=== PATIENT | male | born 1960 | race Caucasian/White ===

== ENCOUNTER → 2016-09-02 | Outpatient (CLI) | payer OTHER ==
[~2016-09-02] MED LIST: AMLO5TAB2 PO; ATEN100T PO; ATOR1TAB21 PO; PRAD150C PO
[2016-09-02 09:26] LABS: ANION GAP 6 MEQ/L (8-16); BLOOD UREA NITROGEN 19 MG/DL (7-18); CALCIUM LEVEL 9.1 MG/DL (8.5-10.1); CARBON DIOXIDE LEVEL 31 MEQ/L (21-32); CHLORIDE LEVEL 107 MEQ/L (98-107); CREATININE FOR GFR 0.92 MG/DL (0.70-1.30); GLOMERULAR FILTRATION RATE > 60.0 (>56); GLUCOSE, FASTING 98 MG/DL (70-105); SODIUM LEVEL 144 MEQ/L (136-145)
[2016-09-02 09:29] LABS: POTASSIUM SERUM 5.4 MEQ/L (3.5-5.1)
== END ==
LOC: M LAB 07:56
PROVIDERS: ATTEND Ophthalmology
DX: Z01.818 Encounter for other preprocedural examination (principal); H25.11 Age-related nuclear cataract, right eye

== ENCOUNTER → 2016-09-12 | Day surgery (SDC) | payer OTHER ==
[~2016-09-12] VITALS: Ht 177.8 cm; Wt 81.6 kg
[~2016-09-12] MED LIST changes: +ACETYLCHOLINE OPHTH SOLN 1% 2ML As Ordered ONE; +ACETYLCHOLINE OPHTH SOLN 1% 2ML XX ONE; +BALANCED SALT IRRIGATION SOLUTION 500ML BAG (FOR OR EYE MACHINE) As Ordered ONE; +BALANCED SALT IRRIGATION SOLUTION 500ML BAG (FOR OR EYE MACHINE) IR ONE; +CEFUROXIME 1MG/0.1ML INTRACAMERAL INJ As Ordered ONE; +CEFUROXIME 1MG/0.1ML INTRACAMERAL INJ ICAM ONE; +D5W/0.2% SODIUM CHLORIDE 1,000 ML IV SCH; +D5W/0.2% SODIUM CHLORIDE 250 ML IV SCH; +HEALON DUET (HEALON 10MG/ML 0.55ML & HEALON ENDOCOAT 30MG/ML 0.85ML) As Ordered ONE; +HEALON DUET (HEALON 10MG/ML 0.55ML & HEALON ENDOCOAT 30MG/ML 0.85ML) IO ONE; +LIDOCAINE 0.75%/EPINEPHRINE 0.025% IN BSS 1ML SYR INTRACAMERAL (OR ONLY) As Ordered ONE; +LIDOCAINE 0.75%/EPINEPHRINE 0.025% IN BSS 1ML SYR INTRACAMERAL (OR ONLY) ICAM ONE; +LIDOCAINE 4% TOPICAL SOLN 50 ML BTL TOP ONE; +MIDAZOLAM INJ 2 MG/2 ML VIAL (J2250) As Ordered ONE; +OFLOXACIN 0.3 % (OCUFLOX) OPTH SOL 5ML OD ONE; +ONDANSETRON 4MG/2ML VIAL (J2405) IV PRN; +PHENYLEPHRINE 2.5% OPHTH SOL 2ML OD ONE; +POVIDONE-IODINE 5% OPHTH PREP SOL 30ML As Ordered ONE; +PROPARACAINE 0.5% OPHTH SOL 15ML OD ONE; +TOBRADEX OPHTH OINT 3.5 GM As Ordered ONE; +TOBRADEX OPHTH OINT 3.5 GM XX ONE; +TROPICAMIDE 1% OPHTH SOLN 2 ML OD ONE; +fentaNYL 100 MCG/2 ML INJECTION (J3010) As Ordered ONE
[2016-09-12 11:35] VITALS: BP 131/89
--- NOTE | 2016-09-13 09:17 | RO ---
DATE OF PROCEDURE: 09/12/2016 PREOPERATIVE DIAGNOSIS: Visually significant nuclear sclerotic cataract right eye. POSTOPERATIVE DIAGNOSIS: Visually significant nuclear sclerotic cataract right eye. PROCEDURE: Extracapsular cataract removal with insertion of Toric implant, ZIS176, 19.0 diopter at 170 degrees, right eye. SURGEON: Emil Tilley DO [employer]: ANESTHESIA: Local with monitored anesthesia care (MAC). COMPLICATIONS: None. POSTOPERATIVE CONDITION: Stable. INDICATION FOR SURGERY: Blurred vision right eye affecting patient's activities of daily living. DESCRIPTION OF PROCEDURE: The patient was seen in the preoperative area and properly identified. The correct operative eye was identified and marked. A Toric reference marker was inked and then placed on the eye marking 0, 90, 180 degree markers. . The patient received topical antibiotics in the preoperative area. The patient then received topical dilating drops consisting of tropicamide and phenylephrine. The patient was then transferred to the operating room. The correct side was reidentified. The patient received topical anesthetics and antibiotics on the surface of the eye. The eye was prepped and draped in a sterile fashion. The upper and lower eyelids were isolated with Tegaderm tape, and the lids were held open with an adjustable speculum. Prior to the paracentesis incision, the Toric reference dong was again inspected and a Toric marker was placed at the 170 degree exit and then marked with ink with a marking pen. Using a sideport blade, a paracentesis incision was made. Intraocular preservative-free lidocaine was then injected into the anterior chamber. Viscoelastic was then injected into the anterior chamber through the paracentesis. Using a 2.65 mm sharp-tipped keratome, the anterior chamber was entered via a temporal clear corneal incision. A continuous curvilinear capsulorrhexis was created with the aid of a 26-gauge cystotome and Utrata forceps. Hydrodissection was performed with balanced salt solution (BSS) on a blunt cannula until the nucleus was freely mobile. The crystalline lens was phacoemulsified and aspirated. Additional cohesive viscoelastic was placed into the capsular bag to deepen it. A ZCT 150, 19.0 diopter lens was placed into the capsular bag and confirmed by visualizing the continuous curvilinear capsulorrhexis, the toric dots were aligned with the 170 degree axis dong. Additional irrigation and aspiration was used to remove cortical material and remaining viscoelastic. The clear corneal incision was hydrated with BSS on a blunt cannula. The lens was well positioned. The incisions were then tested for leaks and found to be negative. The eye was then palpated for appropriate pressure and adjusted accordingly with BSS. ReSure sealant was placed on the incision, and found to be watertight. The eyelid speculum was then carefully removed. Tobradex ointment was placed in the eye. An eye patch and shield were then secured over the eye. The patient tolerated the procedure well and was discharged to the recovery unit in a stable condition. ARTUR
== END | disposition home or self-care (01) ==
LOC: M SDC 08:08
PROVIDERS: ATTEND Ophthalmology
DX: H25.11 Age-related nuclear cataract, right eye (principal); I48.91 Unspecified atrial fibrillation; I10 Essential (primary) hypertension; E78.5 Hyperlipidemia, unspecified; Z79.82 Long term (current) use of aspirin; Z79.899 Other long term (current) drug therapy; Z79.02 Long term (current) use of antithrombotics/antiplatelets
CPT/HCPCS: 66984; J2250; J3010

== ENCOUNTER → 2017-05-01 | Outpatient (CLI) | payer OTHER ==
[~2017-05-01] MED LIST changes: -ACETYLCHOLINE OPHTH SOLN 1% 2ML As Ordered ONE; -ACETYLCHOLINE OPHTH SOLN 1% 2ML XX ONE; -BALANCED SALT IRRIGATION SOLUTION 500ML BAG (FOR OR EYE MACHINE) As Ordered ONE; -BALANCED SALT IRRIGATION SOLUTION 500ML BAG (FOR OR EYE MACHINE) IR ONE; -CEFUROXIME 1MG/0.1ML INTRACAMERAL INJ As Ordered ONE; -CEFUROXIME 1MG/0.1ML INTRACAMERAL INJ ICAM ONE; -D5W/0.2% SODIUM CHLORIDE 1,000 ML IV SCH; -D5W/0.2% SODIUM CHLORIDE 250 ML IV SCH; -HEALON DUET (HEALON 10MG/ML 0.55ML & HEALON ENDOCOAT 30MG/ML 0.85ML) As Ordered ONE; -HEALON DUET (HEALON 10MG/ML 0.55ML & HEALON ENDOCOAT 30MG/ML 0.85ML) IO ONE; -LIDOCAINE 0.75%/EPINEPHRINE 0.025% IN BSS 1ML SYR INTRACAMERAL (OR ONLY) As Ordered ONE; -LIDOCAINE 0.75%/EPINEPHRINE 0.025% IN BSS 1ML SYR INTRACAMERAL (OR ONLY) ICAM ONE; -LIDOCAINE 4% TOPICAL SOLN 50 ML BTL TOP ONE; -MIDAZOLAM INJ 2 MG/2 ML VIAL (J2250) As Ordered ONE; -OFLOXACIN 0.3 % (OCUFLOX) OPTH SOL 5ML OD ONE; -ONDANSETRON 4MG/2ML VIAL (J2405) IV PRN; -PHENYLEPHRINE 2.5% OPHTH SOL 2ML OD ONE; -POVIDONE-IODINE 5% OPHTH PREP SOL 30ML As Ordered ONE; -PROPARACAINE 0.5% OPHTH SOL 15ML OD ONE; -TOBRADEX OPHTH OINT 3.5 GM As Ordered ONE; -TOBRADEX OPHTH OINT 3.5 GM XX ONE; -TROPICAMIDE 1% OPHTH SOLN 2 ML OD ONE; -fentaNYL 100 MCG/2 ML INJECTION (J3010) As Ordered ONE
--- NOTE | 2017-05-02 03:03 | REP ---
Clinical: Sprain. Technique: AP, lateral, bilateral oblique views of the right ankle. Findings: Lateral soft tissue swelling noted. No acute fracture or dislocation. Joint spaces and ankle mortise are intact. Impression: Swelling. No acute fracture or dislocation. Signed by Jean-Claude Orellana MD 05/02/2017 02:54 A
== END ==
LOC: M ADAMS 09:20
PROVIDERS: ATTEND Physician Assistant
DX: S93.401A Sprain of unspecified ligament of right ankle, initial encounter (principal); W18.30XA Fall on same level, unspecified, initial encounter; Y92.009 Unspecified place in unspecified non-institutional (private) residence as the place of occurrence of the external cause

== ENCOUNTER → 2021-05-02 | Outpatient (CLI) | payer OTHER ==
[~2021-05-02] MED LIST changes: +AMLO1TAB24 PO; -AMLO5TAB2 PO; -PRAD150C PO; +PRAD150C6 PO; +XARE20TA PO
== END ==
LOC: M LABSMTC 10:08
PROVIDERS: ATTEND Anesthesiology
DX: Z01.818 Encounter for other preprocedural examination (principal)

== ENCOUNTER 2021-05-07 11:28 | Day surgery (SDC) | payer OTHER ==
[~2021-05-07] VITALS: Ht 177.8 cm; Wt 84.3 kg
[~2021-05-07 11:28] MED LIST changes: +NS 1,000 ML IV ONE
[2021-05-07] MEDS ORDERED: LIDOCAINE 2% 100MG/5ML SDV (FOR ANES.) As Ordered ONE (11:47)
[2021-05-07] MEDS ORDERED: propofoL 200 MG/20 ML VIAL As Ordered ONE (11:47)
--- NOTE | 2021-05-07 12:48 | ROOR ---
Patient Name: Ricardo Fowler Procedure Date: 05/07/2021 12:16 PM Date of : 1960 Age: 60 Room: [facility] Gender: Male Note Status: Finalized Procedure: Total Colonoscopy to Cecum + Biopsy Polypectomy Indications: Colon cancer screening in patient at increased risk: Colorectal cancer in brother, High risk colon cancer surveillance: Personal history of colonic polyps Providers: Long Tilley MD Referring MD: VENKATESH PEREZ Requesting Provider: Medicines: Monitored Anesthesia Care Complications: No immediate complications. Procedure: Pre-Anesthesia Assessment: - The heart rate, respiratory rate, oxygen saturations, blood pressure, adequacy of pulmonary ventilation, and response to care were monitored throughout the procedure. The Colonoscope was introduced through the anus and advanced to the cecum, identified by appendiceal orifice and ileocecal valve. The colonoscopy was performed without difficulty. The patient tolerated the procedure well. The quality of the bowel preparation was good. Findings: The perianal and digital rectal examinations were normal. Non-bleeding internal hemorrhoids were found during retroflexion. The hemorrhoids were small and Grade I (internal hemorrhoids that do not prolapse). Multiple sessile polyps were found at 40 cm proximal to the anus. The polyps were small in size. These polyps were removed with a jumbo cold forceps. Resection and retrieval were complete. A small polyp was found in the hepatic flexure. The polyp was sessile. The polyp was removed with a jumbo cold forceps. Resection and retrieval were complete. Scattered small-mouthed diverticula were found in the recto-sigmoid colon, sigmoid colon and descending colon. The exam was otherwise without abnormality on direct and retroflexion views. Impression: - Non-bleeding internal hemorrhoids. - Multiple small polyps at 40 cm proximal to the anus, removed with a jumbo cold forceps. Resected and retrieved. - One small polyp at the hepatic flexure, removed with a jumbo cold forceps. Resected and retrieved. - Diverticulosis in the recto-sigmoid colon, in the sigmoid colon and in the descending colon. - The examination was otherwise normal on direct and retroflexion views. - The exam was otherwise normal to the cecum. Recommendation: - Patient has a contact number available for emergencies. The signs and symptoms of potential delayed complications were discussed with the patient. Return to normal activities tomorrow. Written discharge instructions were provided to the patient. - High fiber diet. - Discharge patient to home. - Continue present medications. - Await pathology results. - Telephone GI clinic for pathology results in 1 week. - Repeat colonoscopy in 5 years for surveillance based on pathology results. - Return to referring physician. - The findings and recommendations were discussed with the patient. Procedure Code(s): --- Professional --- 01854, Colonoscopy, flexible; with biopsy, single or multiple Diagnosis Code(s): --- Professional --- K63.5, Polyp of colon Z80.0, Family history of malignant neoplasm of digestive organs Z86.010, Personal history of colonic polyps K64.0, First degree hemorrhoids K57.30, Diverticulosis of large intestine without perforation or abscess without bleeding CPT copyright 2019 [employer]. All rights reserved. The codes documented in this report are preliminary and upon note taker review may be revised to meet current compliance requirements. Long Tilley MD Long Tilley MD 05/07/2021 12:47:58 PM Electronically signed by Long Tilley MD Number of Addenda: 0 Note Initiated On: 05/07/2021 12:16 PM Estimated Blood Loss: Estimated blood loss: none.
[2021-05-07 13:08] VITALS: BP 119/73
== END 2021-05-07 13:10 | disposition home or self-care (01) ==
LOC: M OPP 11:28
PROVIDERS: ATTEND Internal Medicine Gastroenterology
DX: Z12.11 Encounter for screening for malignant neoplasm of colon (principal); Z86.010 Personal history of colon polyps; Z80.0 Family history of malignant neoplasm of digestive organs; Z83.71 Family history of colonic polyps; K63.5 Polyp of colon; K64.0 First degree hemorrhoids; K57.30 Diverticulosis of large intestine without perforation or abscess without bleeding; Z79.899 Other long term (current) drug therapy; Z85.46 Personal history of malignant neoplasm of prostate

== ENCOUNTER → 2021-07-12 | Outpatient (CLI) | payer OTHER ==
[~2021-07-12] MED LIST changes: -NS 1,000 ML IV ONE
--- NOTE | 2021-07-12 11:49 | REP ---
INDICATION: PAIN. COMPARISON: None. TECHNIQUE: Four views FINDINGS: The joint spaces are symmetric and relatively well maintained. There is mild D IP joint marginal osteophytosis. There is no evidence of acute fracture or destructive osseous lesion. IMPRESSION: Mild age-related degenerative changes. If a soft tissue abnormality is of clinical concern then an MRI would be in order. <Electronically signed by Minesh Stone > 07/12/21 [id number]
== END ==
LOC: M WUC 11:24
PROVIDERS: ATTEND Physician Assistant
DX: M19.042 Primary osteoarthritis, left hand (principal); M10.9 Gout, unspecified

== ENCOUNTER → 2024-05-13 | Outpatient (REF) | payer OTHER, MEDICARE ==
[2024-05-13 13:29] LABS: INR 2.03; PROTHROMBIN TIME 23.1 SECONDS (12.5-14.5)
== END ==
LOC: M LABDRWAD 12:21
PROVIDERS: ATTEND Internal Medicine Cardiovascular Disease
DX: I48.0 Paroxysmal atrial fibrillation (principal); Z79.01 Long term (current) use of anticoagulants

== ENCOUNTER 2025-01-24 08:57 | Day surgery (SDC) | payer MEDICARE ==
[~2025-01-24] VITALS: Ht 177.8 cm; Wt 92.1 kg
[~2025-01-24 08:57] MED LIST changes: +LR 1,000 ML IV SCH; +OLME5TAB24 PO
[2025-01-24] MEDS ORDERED: MIDAZOLAM INJ 2 MG/2 ML VIAL As Ordered ONE (09:45)
[2025-01-24] MEDS: CYCLOPENTOLATE 1% OPHTH SOLN 2 ML BTL OS SCH (10:31)
[2025-01-24] MEDS: PHENYLEPHRINE 2.5% OPHTH SOL 2ML OS SCH (10:31)
[2025-01-24] MEDS: FLURBIPROFEN 0.03% OPHTH SOLN 2.5 ML OS SCH (10:31)
[2025-01-24] MEDS: TETRACAINE 0.5% OPHTH SOLN 4ML OS SCH (10:31)
[2025-01-24] MEDS: LIDOCAINE 1% SDV 5 ML VIAL As Ordered ONE (11:49)
[2025-01-24] MEDS: CEFUROXIME 1 MG/0.1 ML INTRACAMERAL INJ As Ordered ONE (11:49)
[2025-01-24 12:20] VITALS: BP 167/80; TEMP 97.3; O2SAT 98
== END 2025-01-24 12:32 | disposition home or self-care (01) ==
LOC: M SDC 08:57
PROVIDERS: ATTEND Ophthalmology
DX: H25.12 Age-related nuclear cataract, left eye (principal); I48.91 Unspecified atrial fibrillation; G47.33 Obstructive sleep apnea (adult) (pediatric); Z79.899 Other long term (current) drug therapy
CPT/HCPCS: 66984; J0697; J2250; J3010; V2632

== ENCOUNTER → 2025-03-04 | Outpatient (CLI) | payer MEDICARE ==
[~2025-03-04] MED LIST changes: -LR 1,000 ML IV SCH
== END ==
LOC: M WUC 14:34
PROVIDERS: ATTEND Physician Assistant
DX: R20.2 Paresthesia of skin (principal)